=== PATIENT | male | born 1985 ===

== ENCOUNTER 2025-07-23 06:33 | Day surgery (SDC) | payer OTHER, SELFPAY | END 2025-07-23 14:32 | disposition home or self-care (01) | LOC: GI 06:33 | PROVIDERS: ATTENDING PHYSICIAN Internal Medicine | DX: K63.5 Polyp of colon (principal); K57.30 Diverticulosis of large intestine without perforation or abscess without bleeding; K62.89 Other specified diseases of anus and rectum; K64.8 Other hemorrhoids; R93.3 Abnormal findings on diagnostic imaging of other parts of digestive tract | CPT/HCPCS: 45385; 45380; 88305 ==